=== PATIENT | female | born 1995 | race Caucasian/White ===

== ENCOUNTER 2025-05-24 08:35 | Emergency (ER) | payer OTHER, SELFPAY ==
[2025-05-24] VITALS (10 sets, daily range): BP systolic 104–134; BP diastolic 55–80; PULSE 71–97; RESP 17–18; TEMP 36.8–37.1; O2SAT 98–99; BMI 33.6
--- NOTE | 2025-05-24 08:44 | ED.ABDPAIN ---
HPI - Abdominal Pain General Chief Complaint: Abdominal Pain Stated Complaint: Intoxicated last night, not feeling well today Time Seen by Provider: 05/24/25 08:41 History of Present Illness HPI narrative: Patient is a healthy 30-year-old female presenting today with ongoing abdominal pain nausea vomiting. Reports that she went to a wedding last night had alcohol to drink she does not remember how much. But she has been throwing up nonstop and having abdominal pain. She has had a prior cholecystectomy in 2019. She does not believe that she is . She feels dizzy and lightheaded she has not passed out. Related Data Previous Rx's ?Medication ?Instructions ?Recorded ondansetron 4 mg disintegrating 4 mg PO Q8H PRN nausea and 05/24/25 tablet vomiting #10 tabs Allergies Allergy/AdvReac Type Severity Reaction Status Date / Time No Known Drug Allergies Allergy Verified 05/24/25 08:42 Patient History Social History Smoking Status: Never smoker Exam Initial Vital Signs Initial Vital Signs: Vital Signs Temperature 98.2 F 05/24/25 08:43 Pulse Rate 94 H 05/24/25 08:43 Respiratory Rate 18 05/24/25 08:43 Blood Pressure 119/78 05/24/25 08:43 Pulse Oximetry 98 05/24/25 08:43 Oxygen Delivery Method Room Air 05/24/25 08:43 GENERAL: Alert 30-year-old female and in no acute distress. HEENT: Head atraumatic,EOMI, pupils reactive, face symmetric, moist mucous membranes CARDIOVASCULAR: Regular rate and rhythm without murmurs, rubs or gallops. RESPIRATORY: Breath sounds equal bilaterally, no wheezes rales or rhonchi. ABDOMEN: Soft, tender across mid abdomen no guarding no distention : No CVA tenderness EXTREMITIES: Normal range of motion, no clubbing or edema. Neurovascularly intact NEUROLOGICAL: Alert and oriented x4.Normal gait and speech. Cranial nerves II through XII grossly intact. SKIN: Warm, dry, no laceration, no petechiae, no rashes or lesions. Course Orders Ordered: ED Orders 05/24/25 08:52 Urine Culture Stat Urine Microscopic Stat 05/24/25 08:59 Complete Blood Count AUTO DIFF Stat Comprehensive Metabolic Panel Stat Lipase Stat Discontinued Medications Sodium Chloride (Normal Saline 0.9%) 1,000 mls @ 1,000 mls/hr IV BOLUS ONE Stop: 05/24/25 09:43 Last Infusion: 05/24/25 10:23 Dose: Infused Documented By: Admin: 05/24/25 09:06 Dose: 1,000 mls/hr Documented By: KYLE Sodium Chloride (Normal Saline 0.9%) 1,000 mls @ 1,000 mls/hr IV BOLUS ONE Stop: 05/24/25 10:50 Last Admin: 05/24/25 10:22 Dose: 1,000 mls/hr Documented By: Ondansetron HCl (Ondansetron 4 Mg/2 Ml Inj) 4 mg IV NOW ONE Stop: 05/24/25 08:45 Last Admin: 05/24/25 09:06 Dose: 4 mg Documented By: KYLE Pantoprazole Sodium (Pantoprazole 40 Mg Vial) 40 mg IV NOW ONE Stop: 05/24/25 08:45 Last Admin: 05/24/25 09:06 Dose: 40 mg Documented By: KYLE Vital Signs Vital signs: Vital Signs - 8 hr 05/24/25 08:43 05/24/25 08:50 05/24/25 08:51 Temperature 98.2 F Pulse Rate 94 H 95 H 97 H Respiratory Rate 18 Blood Pressure 119/78 Pulse Oximetry 98 98 98 Oxygen Delivery Method Room Air Oxygen Flow Rate 05/24/25 08:51 05/24/25 09:00 05/24/25 09:00 Temperature Pulse Rate 90 Respiratory Rate Blood Pressure 134/68 113/60 Pulse Oximetry 98 Oxygen Delivery Method Oxygen Flow Rate 05/24/25 09:30 05/24/25 09:30 05/24/25 10:00 Temperature Pulse Rate 95 H Respiratory Rate Blood Pressure 109/80 111/65 Pulse Oximetry 99 Oxygen Delivery Method Oxygen Flow Rate 05/24/25 10:00 05/24/25 10:30 05/24/25 10:31 Temperature Pulse Rate 93 H 71 Respiratory Rate Blood Pressure 106/55 L Pulse Oximetry 98 98 Oxygen Delivery Method Oxygen Flow Rate 05/24/25 10:31 05/24/25 11:00 05/24/25 11:00 Temperature Pulse Rate 94 H 83 Respiratory Rate Blood Pressure 104/73 Pulse Oximetry 98 99 Oxygen Delivery Method Oxygen Flow Rate 05/24/25 11:20 Temperature 98.8 F Pulse Rate 84 Respiratory Rate 17 Blood Pressure 132/68 Pulse Oximetry 99 Oxygen Delivery Method Room Air Oxygen Flow Rate 0 MDM - Abdominal Pain Lab Data 05/24/25 08:59 05/24/25 08:59 Labs: Lab Results 05/24/25 05/24/25 Range/Units 08:52 08:59 WBC 10.0 (4.5-11.0) X10^3/uL RBC 4.94 (4.0-5.2) X10^6/uL Hgb 13.8 (12.0-16.0) g/dL Hct 40.0 (36-46) % MCV 80.9 (80-100) fL MCH 27.9 (26-34) PG MCHC 34.5 (30-36) % RDW 13.8 (11.6-14.8) % Plt Count 295 (150-400) X10^3/uL Neut % (Auto) 67.9 (50-75) % Lymph % (Auto) 25.3 (25-40) % Caroline % (Auto) 5.2 (3-14) % Eos % (Auto) 0.5 L (2-4) % Baso % (Auto) 1.1 (0-2) % Neut # (Auto) 6800 (1398-0155) /uL Lymph # (Auto) 2500 (1571-6762) /uL Caroline # (Auto) 500 (0-900) /uL Eos # (Auto) 0 (0-450) /uL Baso # (Auto) 100 (0-100) /uL Sodium 139 (137-145) mmol/L Potassium 3.8 (3.4-5.1) mmol/L Chloride 109 H (98-107) mmol/L Carbon Dioxide 17 L (22-32) mmol/L BUN 6 L (7-17) mg/dL Creatinine 0.53 (0.52-1.04) mg/dL Estimated GFR > 60 (>60) mL/min BUN/Creatinine Ratio 11.3 (6-22) Glucose 101 H (70-99) mg/dL Calcium 9.0 (8.4-10.2) mg/dL Total Bilirubin 1.2 (0.2-1.3) mg/dL AST 37 H (14-36) IU/L ALT 51 H (<35) IU/L Alkaline Phosphatase 123 (38-126) U/L Total Protein 8.1 (6.3-8.2) g/dL Albumin 4.7 (3.5-5.0) g/dL Globulin 3.4 (1.7-4.1) g/dL Albumin/Globulin Ratio 1.4 (1.0-2.8) Lipase 44 (23-300) U/L Urine RBC 0-1/hpf (0-5/HPF) Urine WBC 1-5/hpf (0-5/HPF) Ur Squamous Epith Cells >30 /hpf H (0-5/HPF) Urine Bacteria Few (2-10) H (None) Ur Culture Indicated? Cult not indicated Vol Urine Centrifuged 10ml (spun) Point of care testing: Point of Care Testing Test Results Negative Urine Dip Bedside Urine Glucose Negative Bedside Urine Bilirubin - Negative Bedside Urine Ketone ++ 40 Urine Specific [place] 1.010 Bedside Urine Occult Blood - Negative Bedside Urine pH 8.5 Bedside Urine Protein - Negative Bedside Urine Urobilinogen - Negative Bedside Urine Nitrite - Negative Bedside Urine Leukocytes ++ 125 Esterase MDM Narrative Medical decision making narrative: [facility] CC: Abdominal pain nausea vomiting Complicating co-morbidities: Prior cholecystectomy Data collected from: Patient Medical records reviewed: None Differential considered: Gastroenteritis, alcohol induced, pancreatitis, bowel obstruction Exam documented above, pertinent findings include: Alert 30-year-old female tender across mid abdomen no distention no peritoneal signs Lab Test results independently reviewed as above. Pertinent findings: CBC shows no leukocytosis no anemia CMP chloride is 109 bicarb 17 creatinine 0.5 potassium within normal limits glucose 101 Bilirubin 1.2 AST 37 ALT 51 lipase 40 Consultations: None Treatments: Normal saline x2 Zofran Protonix Re-evaluations: 0950 patient reexamined no nausea or vomiting here in the ED abdomen is soft and nontender. Giving her another L of fluid Discussion: Patient 30-year-old female presenting today with nausea vomiting after a night of drinking. Abdomen mildly tender but no peritoneal signs. Blood work has been reviewed overall reassuring no evidence of pancreatitis bicarb is slightly low 17 but no leukocytosis or anemia. At this time does not need advanced imaging. She is tolerating fluids. Feeling better overall. Discharge Plan Departure Patient Disposition: Home Clinical Impression: Gastroenteritis Instructions: DI for Viral Gastroenteritis -- Adult Activity Restrictions/Additional Instructions: *You have been diagnosed with nausea vomiting *What to do: At this time increase fluids as tolerated may increase food and diet as tolerated as well *Continue to take medications as directed Zofran 4 mg every 8 hours if needed for nausea or vomiting *Follow up with your primary care provider in 2-3 days or call [phone] *Return to ER if you should have persistent vomiting increasing abdominal pain or any new, worsening or concerning symptoms Prescriptions: New ondansetron 4 mg tablet,disintegrating 4 mg PO Q8H PRN (Reason: nausea and vomiting) Qty: 10 0RF Stand Alone Forms: Patient Portal/API
[2025-05-24] MEDS: PANTOPRAZOLE 40 MG VIAL IV (09:06)
[2025-05-24] MEDS: SODIUM CHLORIDE 0.9% 1,000 ML 1000 ML IV ×2 (09:06→10:22)
[2025-05-24] MEDS: ONDANSETRON 4 MG/2 ML INJ IV (09:06)
[2025-05-24 09:11] LABS: Add Manual Diff / Slide Review NO; Hematocrit 40.0 % (36-46); Hemoglobin 13.8 g/dL (12.0-16.0); Lymphocytes Absolute Auto 2500 /uL (1100-4500); Mean Corpuscular HGB Conc 34.5 % (30-36); Mean Corpuscular Hemoglobin 27.9 PG (26-34); Mean Corpuscular Volume 80.9 fL (80-100); Platelet Count 295 X10^3/uL (150-400)
[2025-05-24 09:18] LABS: Culture Indicated Urine Cult Not Indicated
[2025-05-24 09:28] LABS: Alanine Aminotransferase 51 IU/L (<35); Albumin 4.7 g/dL (3.5-5.0); Albumin Globulin Ratio 1.4 (1.0-2.8); Alkaline Phosphatase 123 U/L (38-126); Blood Urea Nitrogen 6 mg/dL (7-17); Calcium 9.0 mg/dL (8.4-10.2); Carbon Dioxide 17 mmol/L (22-32); Chloride 109 mmol/L (98-107); Estimated Glomerular Filt Rate > 60 mL/min (>60); Globulin 3.4 g/dL (1.7-4.1); Glucose 101 mg/dL (70-99); HEMOLYSIS < 15 (0-50); Lipase 44 U/L (23-300); Potassium 3.8 mmol/L (3.4-5.1); Sodium 139 mmol/L (137-145); Total Protein 8.1 g/dL (6.3-8.2)
== END 2025-05-24 11:22 | disposition home or self-care (01) ==
PROVIDERS: Emergency Provider Emergency Medicine
DX: K52.9 Noninfective gastroenteritis and colitis, unspecified (principal); Z90.49 Acquired absence of other specified parts of digestive tract
CPT/HCPCS: 36415; 80053; 81003; 81015; 81025; 83690; 85025; 87086; 96361; 96374; 96375; 99284; J2405; J2470; J7030